=== PATIENT | male | born 1990 | race Two or more races ===

== ENCOUNTER 2017-06-19 17:55 | Emergency (ER) | payer OTHER ==
[~2017-06-19] VITALS: Ht 172.7 cm; Wt 81.6 kg
[2017-06-19 18:00] VITALS: BP 97/65
[2017-06-19] MEDS ORDERED: Metoclopramide 10mg/2ml Inj IM ONE (19:15)
[2017-06-19] MEDS ORDERED: REGLAN10 MG ORAL (19:34)
[2017-06-19 19:45] VITALS: BP 101/71
--- NOTE | 2017-06-19 21:25 | Emergency Room Report ---
History of Present Illness General Chief Complaint: Nausea Source: Patient Present Illness HPI The patient is a 26-year-old male presenting for nausea and vomiting after edible marijuana ingestion. He states that he consumed too much. This occurred one hour prior to arrival. He denies any other drug use or alcohol use. He denies any pain at this time. He denies any other symptoms including fever, chills, SOB, CP, rash, abd pain, dizziness Allergies: Coded Allergies: No Known Allergies (Unverified , 06/19/17) Patient History Past Medical History: see triage record Pertinent Family History: none Social History: Reports: drug use Reviewed Nursing Documentation: PMH: Agreed, PSxH: Agreed Nursing Documentation-PMH Past Medical History: No Stated History Review of Systems All Other Systems: negative except mentioned in HPI Physical Exam Vital Signs Date Time Temp Pulse Resp B/P (MAP) Pulse Ox O2 Delivery O2 Flow Rate FiO2 06/19/17 17:52 98.1 90 18 97/65 98 Room Air Sp02 EP Interpretation: reviewed, normal General Appearance: no apparent distress, alert, GCS 15, non-toxic Head: normocephalic, atraumatic Eyes: bilateral eye normal inspection, bilateral eye PERRL ENT: hearing grossly normal, normal pharynx, no angioedema, normal voice Musculoskeletal: back normal, gait/station normal, normal range of motion, non- tender Neurologic: alert, oriented x3, responsive, motor strength/tone normal, sensory intact, speech normal Psychiatric: judgement/insight normal, memory normal, mood/affect normal, no suicidal/homicidal ideation Skin: normal color, no rash, warm/dry, well hydrated Medical Decision Making PA Attestation Dr. Garcia is my supervising physician. Patient management was discussed with my supervising physician Diagnostic Impression: Primary Impression: Marijuana intoxication Qualified Codes: F12.920 - Cannabis use, unspecified with intoxication, uncomplicated ER Course The patient is a 26-year-old male presenting for marijuana intoxication and vomiting Differential diagnoses considered but not limited to: Marijuana intoxication, drug abuse, alcohol abuse, gastroenteritis, among others PE: NAD. Pt actively vomiting. The patient is initially given Zofran and promptly vomits. he was then given IM Reglan with significant improvement of symptoms. No vomiting. he states that she feels better. he'll be discharged home and is told to stop using drugs. he is given prescription for reglan. ER precautions given Last Vital Signs Date Time Temp Pulse Resp B/P (MAP) Pulse Ox O2 Delivery O2 Flow Rate FiO2 06/19/17 18:00 98.1 18 97/65 98 Room Air 06/19/17 17:52 90 Status: improved Disposition: HOME, SELF-CARE Condition: Improved Scripts Metoclopramide Hcl* (REGLAN*) 10 Mg Tablet 10 MG ORAL THREE TIMES A DAY, #20 TAB Prov: NICOLE VAUGHN 06/19/17 Referrals: [facility] (PCP) Patient Instructions: Nausea and Vomiting, Adult, Cannabis Use Disorder Additional Instructions: I discussed my findings with the patient. All questions and concerns have been answered. Treatment and medication compliance have been addressed. I advised the patient that they need to follow up with PMD in 3-5 days. Return to ED if symptoms worsen, new symptoms arise, or if needed for any reason. Patient verbalized understanding of discharge instructions. NICOLE VAUGHN Jun 19, 2017 21:25
== END 2017-06-19 19:45 | disposition home or self-care (01) ==
LOC: EDBD 17:55 → EMR 19:10
DX: F12.929 Cannabis use, unspecified with intoxication, unspecified (principal); R11.2 Nausea with vomiting, unspecified
CPT/HCPCS: 96372; 99284; J2765